=== PATIENT | female | born 1995 | race Caucasian/White ===

== ENCOUNTER 2016-05-19 12:50 | Emergency (ER) | payer OTHER ==
[~2016-05-19] VITALS: Ht 154.9 cm; Wt 63.5 kg
[~2016-05-19 12:50] MED LIST: ZOFR4TAB3 PO
[2016-05-19] MEDS ORDERED: LACTATED RINGER'S 1000 ML INJ 1,000 ML IV SCH (14:05)
[2016-05-19 14:28] LABS: BACTERIA, URINE RARE /hpf; BLOOD, URINE NEG (NEG); GLUCOSE,URINE NEG (NEG); KETONE, URINE NEG (NEG); MUCUS URINE MANY /lpf (OCC); NITRITE,URINE NEG (NEG); SQUAMOUS EPITHELIAL CELL URINE 1 /hpf (0-5); URINE COLOR YELLOW (YELLW/STRAW)
[2016-05-19 14:30] LABS: COMMENT (UR) CULT NOT INDICATED; CULTURE IF INDICATED CULT NOT INDICATED
--- NOTE | 2016-05-19 15:39 | PD ---
HPI Chief Complaint Patient presents complaining of [place] contractions denies bleeding or rupture the membranes baby is active Date Seen: May 19, 2016 Travel History International Travel<30 Days: No Contact w/Intl Traveler<30Days: No Known Affected Area: No History of Present Illness HPI Patient is a 21-year-old white female at 27 weeks gestation referred over for Dr. Call for extended monitoring for abdominal pain. Patient states that that she is having [place] contractions for about a week ago and worse over the last couple days when she went to work today she had 3 strong was a caused a lot of pain. She denies any bleeding or rupture the membranes baby is active heart rate tracing is reactive. Her seeing a few small contractions on the monitor. Para: 0 : 1 Allergies-Medications (Allergen,Severity, Reaction): Coded Allergies: [place] (Verified Allergy, Severe, Nausea/Vomiting, 01/26/16) Compazine (Verified Adverse Reaction, Intermediate, AGITATION, ANXIETY, 04/01) Imitrex (Verified Adverse Reaction, Intermediate, FEELS FAINT, 01/26/16) Reglan (Verified Adverse Reaction, Mild, 01/26/16) MAKES PT FEEL FUNNY Home Meds Reported Medications Ondansetron (Zofran ODT)4 Mg Tab4 Mg PO 01/05/16 Review of Systems Gastrointestinal: Abdominal Pain Physical Exam Narrative GENERAL: Well-nourished, well-developed patient. SKIN: Warm and dry. HEAD: Normocephalic and atraumatic. EYES: No scleral icterus. No injection or drainage. ENT: No nasal drainage noted. Mucous membranes pink. Airway patent. NECK: Supple, trachea midline. No JVD. CARDIOVASCULAR: Regular rate and rhythm without murmurs, gallops, or rubs. RESPIRATORY: Breath sounds equal bilaterally. No accessory muscle use. BREASTS: Bilateral exam showed no masses , no retractions, no nipple discharge. ABDOMEN/GI: Abdomen soft, non-tender, bowel sounds present, no rebound, no guarding Gravid to [27-] weeks size Fundal Height: [-26 cm] GENITOURINARY: External Genitalia: intact and normal in appearance BUS glands: [-] Cervix: [-Closed] Dilatation: [-] Closed Effacement: 0 Station: [-3] Presentation: [-] Membranes: [intact ] Uterine Contractions: [Irregular-] FHT's: Category: [1-] Baseline: [-133] Reactive: [yes-] Variability: [-] Decels: [0-] EXTREMITIES: No cyanosis or edema. BACK: Nontender without obvious deformity. No CVA tenderness. NEUROLOGICAL: Awake and alert. Motor and sensory grossly within normal limits. Five out of 5 muscle strength in all muscle groups. Normal speech. Data Data Orders Vital Signs (Adult) .ON ADMISSION (05/19/16 14:05) ^ Labor Status (05/19/16 14:05) Urinalysis - C+S If Indicated (05/19/16 14:05) Fibronectin (05/19/16 14:05) Lactated Ringer's 1000 Ml Inj (Lr 1000 M (05/19/16 14:05) Fentanyl Inj (Fentanyl Inj) (05/19/16 14:15) Labs FFN neg Laboratory Tests Test 05/19/16 14:10 Urine Color YELLOW Urine Turbidity HAZY Urine pH 6.0 Urine Specific [place] 1.030 Urine Protein TRACE Urine Glucose (UA) NEG Urine Ketones NEG Urine Occult Blood NEG Urine Nitrite NEG Urine Bilirubin NEG Urine Urobilinogen LESS THAN 2.0 Urine Leukocyte Esterase NEG Urine RBC 1 Urine WBC 4 Urine Squamous Epithelial 1 Cells Urine Bacteria RARE Urine Mucus MANY Microscopic Urinalysis Comment CULT NOT INDICATED Fibronectin NEGATIVE MDM Medical Record Reviewed: No Interpretation(s) Is 27 week intrauterine with [place] contractions. Denies bleeding or ruptured membranes. Urinalysis negative, fibronectin negative , heart rate tracing reactive irregular contractions seen initially but they responded well to IV fluid and pain medicine. Plan Plan this patient was received IV fluid hydrate that she received 25 micro g of fentanyl, for pain. Fluids helped hydrate the patient and decreased contraction activity. And after bag of fluid she did feel better. Her fibronectin was negative cervix closed thick and high to no further tocolytics needed. Plan to discharge patient home to bedrest increase her oral fluids use Tylenol liberally for pain and a heating pad on low across the abdomen is fine or soaking a hot bath Diagnosis Diagnosis: Primary Impression: Andrew Hick's contraction Disposition: DISCHARGE HOME Condition: Stable lAvarez Colunga II, MD May 19, 2016 15:39
== END 2016-05-19 15:53 | disposition home or self-care (01) ==
LOC: HOBED 12:50
DX: O47.03 False labor before 37 completed weeks of gestation, third trimester (principal); Z3A.27 27 weeks gestation of pregnancy
CPT/HCPCS: 81001; 82731; 96374; 99284; J3010; J7120

== ENCOUNTER → 2016-05-28 | Outpatient (CLI) | payer OTHER ==
[~2016-05-28] MED LIST changes: +IBUP-232 PO; +MULTCAP; +OXYC1TAB63 PO; +PROT40TA PO; +ZOFR8TAB PO
== END ==
LOC: CLAB 12:27
PROVIDERS: ATTEND Obstetrics & Gynecology
DX: O47.9 False labor, unspecified (principal); R82.90 Unspecified abnormal findings in urine
CPT/HCPCS: 87086

== ENCOUNTER 2016-06-04 08:32 | Emergency (ER) | payer OTHER ==
[~2016-06-04 08:32] MED LIST changes: -IBUP-232 PO; -MULTCAP; -OXYC1TAB63 PO; -PROT40TA PO; -ZOFR8TAB PO
[2016-06-04] MEDS ORDERED: LACTATED RINGER'S 1000 ML INJ 1,000 ML IV ONE (09:30)
--- NOTE | 2016-06-04 09:34 | PD ---
HPI Chief Complaint contractions Date Seen: Jun 04, 2016 Time Seen: 09:10 Travel History International Travel<30 Days: No Contact w/Intl Traveler<30Days: No History of Present Illness HPI 21 year old G1 at 29/5 weeks gestation presents with contractions. She is having contractions every 5-6 mins by her report. They started one month ago. She has low back pain associated with the contractions. She has increased frequency of urination but no dysuria. She gets occasional headaches but has a history of migraines. She has no vaginal bleeding or loss of fluids. Has good movements. She is a patient of Dr. Nelson. She is up to date on care. She reports no complications in this other than well controlled hyperemesis gravidarum. She takes Diclegis. History Past Medical History Narrative Medical POTS fibromyalgia Obstetric History Obstetric History Dr. Nelson G1 Hyperemesis gravidarum, on diclegis, well controlled currently Past Surgical History Narrative Surgical appendectomy, adenoid removal, cholecystectomy Family History Narrative Family History grandmother with breast cancer, hypertension, high cholesterol Social History Narrative Social History No smoking, drinking, or drug use Allergies-Medications (Allergen,Severity, Reaction): Coded Allergies: [place] (Verified Allergy, Severe, Nausea/Vomiting, 01/26/16) Compazine (Verified Adverse Reaction, Intermediate, AGITATION, ANXIETY, 04/01) Imitrex (Verified Adverse Reaction, Intermediate, FEELS FAINT, 01/26/16) Reglan (Verified Adverse Reaction, Mild, 01/26/16) MAKES PT FEEL FUNNY Home Meds Reported Medications Ondansetron (Zofran ODT)4 Mg Tab4 Mg PO 01/05/16 Narrative Medication Diclegis Review of Systems General / Constitutional: Weight Gain, No: Fever, Weight Loss, Chills Eyes: No: Diploplia, Blurred Vision, Visual changes, Pain HENT: Headaches, No: Vertigo, Lightheadedness Cardiovascular: No: Irregular Rhythm, Chest Pain or Discomfort, Palpitations, Tachycardia, Syncope Respiratory: No: Cough, Short of Breath, Wheezing Gastrointestinal: Nausea, Vomiting, No: Diarrhea, Abdominal Pain Genitourinary: Urgency, Frequency, No: Dysuria, Hematuria Musculoskeletal: Cramping, No: Limited ROM, Weakness, Edema Skin: No Rash, No Itching Neurologic: Headache, No: Weakness, Dizziness, Syncope, Focal Abnormalities, Coordination Problem Psychiatric: No: Anxiety, Depression Endocrine: No: Heat Intolerance, Cold Intolerance Physical Exam Narrative GENERAL: Well-nourished, well-developed patient. SKIN: Warm and dry. HEAD: Normocephalic and atraumatic. EYES: No scleral icterus. No injection or drainage. ENT: No nasal drainage noted. Mucous membranes pink. Airway patent. NECK: Supple, trachea midline. No JVD. CARDIOVASCULAR: Regular rate and rhythm without murmurs, gallops, or rubs. RESPIRATORY: Breath sounds equal bilaterally. No accessory muscle use. BREASTS: Bilateral exam showed no masses , no retractions, no nipple discharge. ABDOMEN/GI: Abdomen soft, non-tender, bowel sounds present, no rebound, no guarding Gravid to [-] weeks size Fundal Height: [-] GENITOURINARY: External Genitalia: intact and normal in appearance Dilatation:0 Effacement:0 Station: [-] Presentation: [-] Membranes: [intact or ruptured] Uterine Contractions: none currently FHT's: Category:1 Baseline: 130's Reactive: yes Variability: moderate Decels: none EXTREMITIES: No cyanosis or edema. BACK: Nontender without obvious deformity. No CVA tenderness. NEUROLOGICAL: Awake and alert. Motor and sensory grossly within normal limits. Five out of 5 muscle strength in all muscle groups. Normal speech. Data Data Vital Signs Reviewed: Yes Orders Vital Signs (Adult) .ON ADMISSION (06/04/16 09:16) ^ Labor Status (06/04/16 09:16) Urinalysis - C+S If Indicated (06/04/16 09:16) ^ Hydration (06/04/16 09:16) Fibronectin (06/04/16 09:16) Us Ob Bpp Wo Nst (06/04/16 09:16) Lr ([place]) Inj (06/04/16 09:30) MDM Medical Record Reviewed: Yes Interpretation(s) 21 year old G1 at 29/5 weeks gestation, having contractions. - US, assess cervical length. - Urinalysis to rule out UTI - One liter lactated ringers for hydration - Continuous monitoring - Monitor for contractions - Labor check, cervix closed Narrative Course / MDM 21 year old G1 at 29/5 weeks gestation. - UA negative. - FFN negative - Hydrated with one liter LR - No contractions on monitor - Category one tracing - US: BPP 8/8, normal anatomy, normal cervical length - Follow up with OB doctor - Hydrate well Diagnosis Diagnosis: Primary Impression: Uterine cramping Disposition: 01 DISCHARGE HOME Condition: Good Rolf Durbin MD R2 Jun 04, 2016 09:34
[2016-06-04 09:41] LABS: BACTERIA, URINE RARE /hpf; BLOOD, URINE NEG (NEG); COMMENT (UR) CULT NOT INDICATED; CULTURE IF INDICATED CULT NOT INDICATED; GLUCOSE,URINE NEG (NEG); KETONE, URINE NEG (NEG); MUCUS URINE FEW /lpf (OCC); NITRITE,URINE NEG (NEG); PH, URINE 6.5 (5.0-8.5); SQUAMOUS EPITHELIAL CELL URINE 2 /hpf (0-5); URINE COLOR YELLOW (YELLW/STRAW)
== END 2016-06-04 11:00 | disposition home or self-care (01) ==
LOC: HOBED 08:32
DX: N94.89 Other specified conditions associated with female genital organs and menstrual cycle (principal)
CPT/HCPCS: 59025; 76816; 81001; 82731; 99284; J7120

== ENCOUNTER 2016-07-11 11:07 | Emergency (ER) | payer OTHER ==
[2016-07-11] MEDS ORDERED: MULTCAP (12:09)
--- NOTE | 2016-07-11 12:15 | PD ---
HPI Chief Complaint Possible leakage of fluid Date Seen: Jul 11, 2016 Time Seen: 14:05 Travel History International Travel<30 Days: No Contact w/Intl Traveler<30Days: No Known Affected Area: No History of Present Illness HPI 21-year-old 1 at 34-6/7 weeks gestation who thinks she may have been leaking a small amount of fluid. She also complains of intermittent sharp lower abdominal pain lasting just a couple of seconds. She denies any bleeding. She does report decreased movement. Para: 0 : 1 History Past Medical History Narrative Medical Fibromyalgia Obstetric History Obstetric History care with Dr. Call Past Surgical History Narrative Surgical Appendectomy, cholecystectomy, adenoid removal Family History Family History: Negative Social History Alcohol Use: No Tobacco Use: No Substance Abuse: No Allergies-Medications (Allergen,Severity, Reaction): Coded Allergies: [place] (Verified Allergy, Severe, Nausea/Vomiting, 01/26/16) Compazine (Verified Adverse Reaction, Intermediate, AGITATION, ANXIETY, 04/01) Imitrex (Verified Adverse Reaction, Intermediate, FEELS FAINT, 01/26/16) Reglan (Verified Adverse Reaction, Mild, 01/26/16) MAKES PT FEEL FUNNY Home Meds Reported Medications Ondansetron (Zofran ODT)4 Mg Tab4 Mg PO 01/05/16 Review of Systems Except as stated in HPI: all other systems reviewed are Neg Physical Exam Narrative GENERAL: Well-nourished, well-developed patient. SKIN: Warm and dry. HEAD: Normocephalic and atraumatic. EYES: No scleral icterus. No injection or drainage. ENT: No nasal drainage noted. Mucous membranes pink. Airway patent. NECK: Supple, trachea midline. No JVD. CARDIOVASCULAR: Regular rate and rhythm without murmurs, gallops, or rubs. RESPIRATORY: Breath sounds equal bilaterally. No accessory muscle use. ABDOMEN/GI: Abdomen soft, non-tender, bowel sounds present, no rebound, no guarding Gravid to [34-] weeks size Fundal Height: [-] GENITOURINARY: External Genitalia: intact and normal in appearance BUS glands: [-Negative] Cervix: [-] Dilatation: [Closed-] Effacement: [Long-] Station: [-High] Presentation: [Vertex-] Membranes: [intact ] Uterine Contractions: [-No] FHT's: Category: [1-] Baseline: [-] Reactive: [-Yes] Variability: [-] Decels: [-] EXTREMITIES: No cyanosis or edema. BACK: Nontender without obvious deformity. No CVA tenderness. NEUROLOGICAL: Awake and alert. Motor and sensory grossly within normal limits. Five out of 5 muscle strength in all muscle groups. Normal speech. Data Data Vital Signs Reviewed: Yes [facility] Medical Record Reviewed: Yes Diagnosis Diagnosis: Primary Impression: Andrew Hick's contraction Additional Impressions: 34 weeks gestation of leakage of amniotic fluid ruled out Disposition: 01 DISCHARGE HOME Bryant Zee MD Jul 11, 2016 12:15
== END 2016-07-11 13:45 | disposition home or self-care (01) ==
LOC: HOBED 11:07
DX: Z03.71 Encounter for suspected problem with amniotic cavity and membrane ruled out (principal); O47.03 False labor before 37 completed weeks of gestation, third trimester; O26.893 Other specified pregnancy related conditions, third trimester; R10.30 Lower abdominal pain, unspecified; Z87.39 Personal history of other diseases of the musculoskeletal system and connective tissue; Z3A.34 34 weeks gestation of pregnancy
CPT/HCPCS: 84112; 99284

== ENCOUNTER 2016-07-11 19:24 | Emergency (ER) | payer OTHER ==
[~2016-07-11 19:24] MED LIST changes: +MULTCAP
[2016-07-11] MEDS ORDERED: PROMETHAZINE INJ 25 MG/ML VIAL IM ONE (20:00)
--- NOTE | 2016-07-11 20:23 | PD ---
History of Present Illness Date Seen: Jul 11, 2016 Time Seen: 20:20 History of Present Illness Patient is a 21-year-old female who is 36 weeks and seen earlier today in the triage unit for possible ruptured membranes. She was discharged home after this was ruled out. She has had persistent nausea and vomiting throughout the for which she takes Diclegis. She vomited after leaving an returns for antiemetic treatment. She has not taken her Diclegis. Assessment: Nausea and vomiting of Plan: 25 mg of IM Phenergan. UA culture not indicated Resume home perscription Bryant Zee MD Jul 11, 2016 20:23
[2016-07-11 21:50] LABS: BLOOD, URINE NEG (NEG); COMMENT (UR) CULT NOT INDICATED; CULTURE IF INDICATED CULT NOT INDICATED; GLUCOSE,URINE NEG (NEG); HYALINE CAST, URINE 4 /lpf (RARE); KETONE, URINE 80 mg/dL (NEG); MUCUS URINE MANY /lpf (OCC); NITRITE,URINE NEG (NEG); PH, URINE 5.5 (5.0-8.5); SQUAMOUS EPITHELIAL CELL URINE 3 /hpf (0-5); URINE COLOR YELLOW (YELLW/STRAW)
== END 2016-07-11 23:43 | disposition home or self-care (01) ==
LOC: HOBED 19:24
DX: O21.9 Vomiting of pregnancy, unspecified (principal); Z3A.36 36 weeks gestation of pregnancy
CPT/HCPCS: 59025; 81001; 96372; 99284; J2550

== ENCOUNTER 2016-07-16 16:15 | Emergency (ER) | payer OTHER ==
[2016-07-16] MEDS ORDERED: LACTATED RINGER'S 1000 ML INJ 1,000 ML IV SCH (17:00)
[2016-07-16 17:11] VITALS: RESP 18; TEMP 98.1
[2016-07-16 17:45] LABS: BLOOD, URINE NEG (NEG); COMMENT (UR) CULT NOT INDICATED; CULTURE IF INDICATED CULT NOT INDICATED; GLUCOSE,URINE NEG (NEG); KETONE, URINE NEG (NEG); MUCUS URINE FEW /lpf (OCC); NITRITE,URINE NEG (NEG); URINE COLOR YELLOW (YELLW/STRAW)
--- NOTE | 2016-07-16 18:09 | PD ---
HPI Chief Complaint Complains of decreased movement and pelvic pressure Date Seen: Jul 16, 2016 Time Seen: 16:30 Travel History International Travel<30 Days: No Contact w/Intl Traveler<30Days: No Known Affected Area: No History of Present Illness HPI This patient is a 21-year-old white female at [address] Nelson for care presents complaining of decreased movement and increased pelvic pressure and pain, denies bleeding or rupture the membranes. Her heart rate tracing is reactive with good variability, and she is randal every 2-3 minutes. 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 and sees a ged teacher who came and saw her today in labor and delivery patient is off any medications while for this Social History Alcohol Use: No Tobacco Use: No Substance Abuse: No Allergies-Medications (Allergen,Severity, Reaction): Coded Allergies: [place] (Verified Allergy, Severe, Nausea/Vomiting, 07/11/16) Compazine (Verified Adverse Reaction, Intermediate, AGITATION, ANXIETY, ) Imitrex (Verified Adverse Reaction, Intermediate, FEELS FAINT, 07/11/16) Reglan (Verified Adverse Reaction, Mild, 07/11/16) MAKES PT FEEL FUNNY Home Meds Reported Medications Multiple Vitamins W/ Minerals (Multi For Her)1 Cap Cap 07/11/16 Ondansetron (Zofran ODT)4 Mg Tab4 Mg PO 01/05/16 Review of Systems General / Constitutional: No: Fever, Weight Gain, Chills, Other Eyes: No: Diploplia, Blurred Vision, Visual changes, Pain, Photophobia HENT: No: Headaches, Vertigo, Lightheadedness Cardiovascular: No: Irregular Rhythm, Chest Pain or Discomfort, Palpitations, Tachycardia, Syncope, Varicosities, Edema, Cyanosis Respiratory: No: Cough, Short of Breath, Other Gastrointestinal: No: Nausea, Vomiting, Diarrhea Genitourinary: No: Decreased Urinary Output, Oliguria Musculoskeletal: No: Limited ROM, Weakness, Cramping, Edema, Pain Skin: No Rash, No Itching, No Dryness, No Lumps, No Change in Pigmentation, No Change in Nails, No Alopecia, No Lesions Neurologic: No: Weakness, Dizziness, Syncope, Focal Abnormalities, Coordination Problem, Headache, Slurred Speech, Seizures Psychiatric: No: Depression, Suicidal Ideations, Homicidal Ideation Endocrine: No: Heat Intolerance, Cold Intolerance, Polydipsia, Polyuria, Other Physical Exam Vital Signs Date Time Temp Pulse Resp B/P Pulse Ox O2 Delivery O2 Flow Rate FiO2 07/16/16 17:11 98.1 18 Narrative GENERAL: Well-nourished, well-developed patient. SKIN: Warm and dry. HEAD: Normocephalic and atraumatic. EYES: No scleral icterus. No injection or drainage. ENT: No nasal drainage noted. Mucous membranes pink. Airway patent. NECK: Supple, trachea midline. No JVD. CARDIOVASCULAR: Regular rate and rhythm without murmurs, gallops, or rubs. RESPIRATORY: Breath sounds equal bilaterally. No accessory muscle use. BREASTS: Bilateral exam showed no masses , no retractions, no nipple discharge. ABDOMEN/GI: Abdomen soft, non-tender, bowel sounds present, no rebound, no guarding Gravid to [-35] weeks size Fundal Height: [35-] GENITOURINARY: External Genitalia: intact and normal in appearance BUS glands: [-] Cervix: [Closed-] Dilatation: [-Closed] Effacement: [-] Thick Station: [-] High Presentation: [vtx-] Membranes: [intact ] Uterine Contractions: [Every 2-3 minutes-] FHT's: Category: [-1] Baseline: [133-] Reactive: [-yes] Variability: [mod-] Decels: [none-] EXTREMITIES: No cyanosis or edema. BACK: Nontender without obvious deformity. No CVA tenderness. NEUROLOGICAL: Awake and alert. Motor and sensory grossly within normal limits. Five out of 5 muscle strength in all muscle groups. Normal speech. Data Data Orders Vital Signs (Adult) .ON ADMISSION (07/16/16 16:45) ^ Labor Status (07/16/16 16:45) Urinalysis - C+S If Indicated (07/16/16 16:45) Lactated Ringer's 1000 Ml Inj (Lr 1000 M (07/16/16 17:00) Fentanyl Inj (Fentanyl Inj) (07/16/16 18:00) Ob Poc Ultrasound (07/16/16 ) Labs Biophysical profile done tonight throughout [id number] ultrasound which showed a vertex active fetus size equal dates with normal anatomy, adequate amniotic fluid, posterior placenta grade 1, biophysical profile was 8 of 8 on ultrasound 10 of 10 counting the NST Laboratory Tests Test 07/16/16 17:10 Urine Color YELLOW Urine Turbidity CLEAR Urine pH 6.0 Urine Specific [place] 1.016 Urine Protein NEG Urine Glucose (UA) NEG Urine Ketones NEG Urine Occult Blood NEG Urine Nitrite NEG Urine Bilirubin NEG Urine Urobilinogen LESS THAN 2.0 Urine Leukocyte Esterase NEG Urine WBC 1 Urine Mucus FEW Microscopic Urinalysis Comment CULT NOT INDICATED MDM Interpretation(s) This patient is a 21-year-old white female at [address] Nelson for care presents combining of decreased movement and increased pelvic pressure and pain, she denies bleeding or rupture the membranes , baby is active here in labor and delivery she has felt the baby move more here , she is randal every 2-3 minutes and we treated that with IV hydration a liter of fluid and 50 mg of fentanyl IV cause of her cardiac condition with did not give her any terbutaline,po vistaril given , so effectively we've done all the TOCOLYSE and we can do for this 35 week patient nothing else is indicated. Her NST is reactive contractions as above biophysical profile done at the bedside by me which was 8 of 8 on ultrasound 10 of 10 counting the strip Plan Plan we will discharge the patient to home bed rest and Tylenol for pain , heating pad ,soak in a hot tub ,bedrest as much as possible if uncomfortable . return for worsening symptoms Diagnosis Diagnosis: Primary Impression: Decreased movement affecting management of in third trimester Additional Impression: Threatened premature labor affecting , less than 37 weeks in third trimester, antepartum Disposition: 01 DISCHARGE HOME Condition: Stable Alvarez Colunga II, MD Jul 16, 2016 18:09
[2016-07-16 19:15] VITALS: PULSE 77
[2016-07-16 19:30] VITALS: RESP 18
== END 2016-07-16 23:01 | disposition home or self-care (01) ==
LOC: HOBED 16:15
DX: O36.8130 Decreased fetal movements, third trimester, not applicable or unspecified (principal); O47.00 False labor before 37 completed weeks of gestation, unspecified trimester; Z3A.35 35 weeks gestation of pregnancy
CPT/HCPCS: 76815; 81001; 96361; 96374; 99284; J3010; J7120

== ENCOUNTER 2016-07-24 12:01 | Emergency (ER) | payer OTHER ==
[2016-07-24 12:45] VITALS: TEMP 98.3
[2016-07-24] MEDS ORDERED: LACTATED RINGER'S 1000 ML INJ 1,000 ML IV SCH ×2 (13:05→14:05)
--- NOTE | 2016-07-24 13:13 | PD ---
HPI Chief Complaint Contractions with nausea vomiting Date Seen: Jul 24, 2016 Time Seen: 13:09 Travel History International Travel<30 Days: No Contact w/Intl Traveler<30Days: No Known Affected Area: No History of Present Illness HPI 21-year-old who is at 36 weeks and 5 days comes in today with nausea vomiting. Patient had nausea and vomiting in her first trimester control with diet cleavages and Zofran. Patient was prescribed Zofran 4 mg sublingually by her OB but states it has not been effective and has been unable to tolerate oral fluids since last night. Complains of intermittent contractions since 0600 Para: 0 : 1 Last Menstrual Period: Nov 10, 2015 History Past Medical History Narrative Medical Fibromyalgia Positional orthostatic tachycardia Past Surgical History Narrative Surgical Tonsillectomy and cholecystectomy Appendectomy Family History Family History: Negative Social History Alcohol Use: No Tobacco Use: No Substance Abuse: No Allergies-Medications (Allergen,Severity, Reaction): Coded Allergies: [place] (Verified Allergy, Severe, Nausea/Vomiting, 07/11/16) Compazine (Verified Adverse Reaction, Intermediate, AGITATION, ANXIETY, ) Imitrex (Verified Adverse Reaction, Intermediate, FEELS FAINT, 07/11/16) Reglan (Verified Adverse Reaction, Mild, 07/11/16) MAKES PT FEEL FUNNY Home Meds Active Scripts Pantoprazole (Protonix)40 Mg Tab40 Mg PO DAILY #30 TAB Ref 0 Prov:Raven Montelongo MD 07/24/16 Ondansetron (Zofran)8 Mg Tab8 Mg PO TID PRN (nausea) #20 TAB Ref 0 Prov:Raven Montelongo MD 07/24/16 Reported Medications Multiple Vitamins W/ Minerals (Multi For Her)1 Cap Cap 07/11/16 Ondansetron (Zofran ODT)4 Mg Tab4 Mg PO 01/05/16 Review of Systems Except as stated in HPI: all other systems reviewed are Neg Physical Exam Narrative GENERAL: Well-nourished, well-developed patient. SKIN: Warm and dry. HEAD: Normocephalic and atraumatic. EYES: No scleral icterus. No injection or drainage. ENT: No nasal drainage noted. Mucous membranes pink. Airway patent. NECK: Supple, trachea midline. No JVD. CARDIOVASCULAR: Regular rate and rhythm without murmurs, gallops, or rubs. RESPIRATORY: Breath sounds equal bilaterally. No accessory muscle use. BREASTS: Bilateral exam showed no masses , no retractions, no nipple discharge. ABDOMEN/GI: Abdomen soft, non-tender, bowel sounds present, no rebound, no guarding Gravid to [-] weeks size Fundal Height: [35-] GENITOURINARY: External Genitalia: intact and normal in appearance BUS glands: [Normal-] nurse examined this patient cervix was closed 50 and high Cervix: [-] Dilatation: [-] Effacement: [-] Station: [-] Presentation: [-] Membranes: [intact or ruptured] Uterine Contractions: [-] Irregular every 5-8 minutes FHT's: Category: [1-] Baseline: [-140] Reactive: [-] Variability: Reactive with accelerations Decels: [-Absent] EXTREMITIES: No cyanosis or edema. BACK: Nontender without obvious deformity. No CVA tenderness. NEUROLOGICAL: Awake and alert. Motor and sensory grossly within normal limits. Five out of 5 muscle strength in all muscle groups. Normal speech. Data Data Vital Signs Reviewed: Yes Orders Vital Signs (Adult) .ON ADMISSION (07/24/16 13:05) ^ Labor Status (07/24/16 13:05) ^ Hydration (07/24/16 13:05) Basic Metabolic Panel (Bmp) (07/24/16 13:05) Lactated Ringer's 1000 Ml Inj (Lr 1000 M (07/24/16 13:05) Lactated Ringer's 1000 Ml Inj (Lr 1000 M (07/24/16 14:05) Labs Laboratory Tests Test 07/24/16 13:30 White Blood Count 9.9 TH/MM3 Red Blood Count 4.19 MIL/MM3 Hemoglobin 11.6 GM/DL Hematocrit 34.2 % Mean Corpuscular Volume 81.4 FL Mean Corpuscular Hemoglobin 27.6 PG Mean Corpuscular Hemoglobin 33.9 % Concent Red Cell Distribution Width 13.7 % Platelet Count 299 TH/MM3 Mean Platelet Volume 9.0 FL Neutrophils (%) (Auto) 66.0 % Lymphocytes (%) (Auto) 23.6 % Monocytes (%) (Auto) 9.8 % Eosinophils (%) (Auto) 0.4 % Basophils (%) (Auto) 0.2 % Neutrophils # (Auto) 6.5 TH/MM3 Lymphocytes # (Auto) 2.3 TH/MM3 Monocytes # (Auto) 1.0 TH/MM3 Eosinophils # (Auto) 0.0 TH/MM3 Basophils # (Auto) 0.0 TH/MM3 CBC Comment DIFF FINAL Differential Comment Sodium Level 139 MEQ/L Potassium Level 3.9 MEQ/L Chloride Level 107 MEQ/L Carbon Dioxide Level 21.1 MEQ/L Anion Gap 11 MEQ/L Blood Urea Nitrogen 11 MG/DL Creatinine 0.62 MG/DL Estimat Glomerular Filtration 122 ML/MIN Rate Random Glucose 79 MG/DL Calcium Level 8.9 MG/DL MDM Plan 21 yo at 35-36 weeks gestation with nausea and vomiting Fibromyalgia False labor Have enclosed scripts for Zofran 8 mg and Protonix for her reflux symptoms which may be initiating the nausea and vomiting Diagnosis Diagnosis: Primary Impression: Nausea/vomiting in Additional Impression: False labor after 37 weeks of gestation without delivery Disposition: 01 DISCHARGE HOME Scripts Pantoprazole (Protonix)40 Mg Tab40 Mg PO DAILY #30 TAB Ref 0 Prov:Raven Montelongo MD 07/24/16 Ondansetron (Zofran)8 Mg Tab8 Mg PO TID PRN (nausea) #20 TAB Ref 0 Prov:Raven Montelongo MD 07/24/16 Raven Montelongo MD Jul 24, 2016 13:13
[2016-07-24] MEDS ORDERED: PROCHLORPERAZINE INJ 10 MG/2 ML VIAL IVS ONE (13:15)
[2016-07-24] MEDS ORDERED: ONDANSETRON HCL 4 MG/2 ML VIAL IV PUSH ONE (13:45)
[2016-07-24 13:56] VITALS: BP 116/82; PULSE 75
[2016-07-24 13:58] VITALS: RESP 18
[2016-07-24 13:58] LABS: AUTOMATED NEUTROPHIL # 6.5 TH/MM3 (1.8-7.7); BASOPHIL % 0.2 % (0.0-2.0); EOSINOPHIL % 0.4 % (0.0-4.0); HEMATOCRIT 34.2 % (35.0-46.0); HEMO FLAGS DIFF FINAL; LYMPH % 23.6 % (9.0-44.0); LYMPHOCYTE # 2.3 TH/MM3 (1.0-4.8); MEAN CELL VOLUME 81.4 FL (80.0-100.0); MEAN CORPUSCULAR HEMOGLOBIN 27.6 PG (27.0-34.0); MEAN CORPUSCULAR HGB CONC 33.9 % (32.0-36.0); MONO % 9.8 % (0.0-8.0); PLATELET COUNT 299 TH/MM3 (150-450); RED BLOOD COUNT 4.19 MIL/MM3 (4.00-5.30); RED CELL DISTRIBUTION WIDTH 13.7 % (11.6-17.2); WHITE BLOOD COUNT 9.9 TH/MM3 (4.0-11.0)
[2016-07-24 14:09] LABS: BICARBONATE 21.1 MEQ/L (21.0-32.0); POTASSIUM 3.9 MEQ/L (3.5-5.1)
[2016-07-24] MEDS ORDERED: PROT40TA PO (14:24)
[2016-07-24] MEDS ORDERED: ZOFR8TAB PO (14:24)
[2016-07-24 14:26] VITALS: BP 110/77; PULSE 66
== END 2016-07-24 15:29 | disposition home or self-care (01) ==
LOC: HOBED 12:01
DX: O47.03 False labor before 37 completed weeks of gestation, third trimester (principal); M79.7 Fibromyalgia; O21.0 Mild hyperemesis gravidarum; Z3A.36 36 weeks gestation of pregnancy
CPT/HCPCS: 80048; 85025; 96361; 96374; 99284; J2405; J7120

== ENCOUNTER 2016-07-27 14:53 | Emergency (ER) | payer OTHER ==
[~2016-07-27 14:53] MED LIST changes: +PROT40TA PO; +ZOFR8TAB PO
--- NOTE | 2016-07-27 15:46 | PD ---
HPI Chief Complaint Increasing pelvic pressure Date Seen: Jul 27, 2016 Travel History International Travel<30 Days: No Contact w/Intl Traveler<30Days: No Known Affected Area: No History of Present Illness HPI She is 21-year-old white female at 37 weeks presents complaining of increasing pelvic pressure since yesterday. She states the pressure is there is a steady increasing force is present when she is up moving or sitting up is a lot of pressure. Does not really describe pain or contractions per se but she is randal on the monitor about every 4 minutes or so, heart rate tracing is reactive, she denies vaginal bleeding or leakage of fluid Para: 0 : 1 History Past Medical History Medical History: Denies Significant Hx Social History Alcohol Use: No Tobacco Use: No Substance Abuse: No Allergies-Medications (Allergen,Severity, Reaction): Coded Allergies: [place] (Verified Allergy, Severe, Nausea/Vomiting, 07/11/16) Compazine (Verified Adverse Reaction, Intermediate, AGITATION, ANXIETY, ) Imitrex (Verified Adverse Reaction, Intermediate, FEELS FAINT, 07/11/16) Reglan (Verified Adverse Reaction, Mild, 07/11/16) MAKES PT FEEL FUNNY Home Meds Active Scripts Pantoprazole (Protonix)40 Mg Tab40 Mg PO DAILY #30 TAB Ref 0 Prov:Raven Montelongo MD 07/24/16 Ondansetron (Zofran)8 Mg Tab8 Mg PO TID PRN (nausea) #20 TAB Ref 0 Prov:Raven Montelongo MD 07/24/16 Reported Medications Multiple Vitamins W/ Minerals (Multi For Her)1 Cap Cap 07/11/16 Ondansetron (Zofran ODT)4 Mg Tab4 Mg PO 01/05/16 Review of Systems General / Constitutional: No: Fever, Weight Gain, Chills, Other Eyes: No: Diploplia, Blurred Vision, Visual changes, Pain, Photophobia HENT: No: Headaches, Vertigo, Lightheadedness Cardiovascular: No: Irregular Rhythm, Chest Pain or Discomfort, Palpitations, Tachycardia, Syncope, Varicosities, Edema, Cyanosis Respiratory: No: Cough, Short of Breath, Other Gastrointestinal: Abdominal Pain, No: Nausea, Vomiting, Diarrhea Genitourinary: Pelvic Pain, No: Decreased Urinary Output, Oliguria Musculoskeletal: No: Limited ROM, Weakness, Cramping, Edema, Pain Skin: No Rash, No Itching, No Dryness, No Lumps, No Change in Pigmentation, No Change in Nails, No Alopecia, No Lesions Neurologic: No: Weakness, Dizziness, Syncope, Focal Abnormalities, Coordination Problem, Headache, Slurred Speech, Seizures Psychiatric: No: Depression, Suicidal Ideations, Homicidal Ideation Endocrine: No: Heat Intolerance, Cold Intolerance, Polydipsia, Polyuria, Other Physical Exam Narrative GENERAL: Well-nourished, well-developed patient. SKIN: Warm and dry. HEAD: Normocephalic and atraumatic. EYES: No scleral icterus. No injection or drainage. ENT: No nasal drainage noted. Mucous membranes pink. Airway patent. NECK: Supple, trachea midline. No JVD. CARDIOVASCULAR: Regular rate and rhythm without murmurs, gallops, or rubs. RESPIRATORY: Breath sounds equal bilaterally. No accessory muscle use. BREASTS: Bilateral exam showed no masses , no retractions, no nipple discharge. ABDOMEN/GI: Abdomen soft, non-tender, bowel sounds present, no rebound, no guarding Gravid to [-36] weeks size Fundal Height: [36-] GENITOURINARY: External Genitalia: intact and normal in appearance BUS glands: [-] Cervix: [-] Dilatation: [closed-] Effacement: [50-] Station: [-3] posterior Presentation: [-vtx] Membranes: [intact ] Uterine Contractions: [-q 4 min] FHT's: Category: [1-] Baseline: [-133] Reactive: [yes-] Variability: [-mod] Decels: [none-] EXTREMITIES: No cyanosis or edema. BACK: Nontender without obvious deformity. No CVA tenderness. NEUROLOGICAL: Awake and alert. Motor and sensory grossly within normal limits. Five out of 5 muscle strength in all muscle groups. Normal speech. MDM Interpretation(s) Patient is 21-year-old white female at 37 weeks gestation presents pain, increasing pelvic and abdominal pressure. She denies bleeding or leakage of amniotic fluid, the heart rate tracing is reactive she is randal about every 4-5 minutes. Patient's cervix is closed and posterior discomfort is likely related to soft tissue strain and pain and I recommended the patient and increase her bed rest over the next [id number] hours increase her fluid intake to hydrate better use Tylenol liberally for pain or discomfort. Also use a heating pad or hot bath as well. Offered her a pain shot today and she wanted to do that so we will give her 50 g of fentanyl IM. She is to follow-up with Dr. Nelson her OB provider for further symptoms or as scheduled Plan Plan to discharge patient home today to bed rest and increase fluids by mouth Tylenol, heating pad and or hot bath to alleviate symptoms Diagnosis Diagnosis: Primary Impression: False labor at or after 37 completed weeks of gestation Disposition: 01 DISCHARGE HOME Condition: Stable Alvarez Colunga II, MD Jul 27, 2016 15:46
== END 2016-07-27 16:03 | disposition home or self-care (01) ==
LOC: HOBED 14:53
DX: O47.1 False labor at or after 37 completed weeks of gestation (principal); Z3A.37 37 weeks gestation of pregnancy
CPT/HCPCS: 96372; 99284; J3010

== ENCOUNTER 2016-08-01 08:57 | Emergency (ER) | payer OTHER ==
--- NOTE | 2016-08-01 10:16 | PD ---
HPI Chief Complaint Contraction pain Date Seen: Aug 01, 2016 Travel History International Travel<30 Days: No Contact w/Intl Traveler<30Days: No Known Affected Area: No History of Present Illness HPI Patient complains of irregular uterine contractions with increasing pain over the last 24 hours, denies bleeding or rupture the membranes, baby is reactive and moving. The contractions are seen every 4-6 minutes Para: 0 : 1 History Social History Alcohol Use: No Tobacco Use: No Substance Abuse: No Allergies-Medications (Allergen,Severity, Reaction): Coded Allergies: [place] (Verified Allergy, Severe, Nausea/Vomiting, 07/11/16) Compazine (Verified Adverse Reaction, Intermediate, AGITATION, ANXIETY, ) Imitrex (Verified Adverse Reaction, Intermediate, FEELS FAINT, 07/11/16) Reglan (Verified Adverse Reaction, Mild, 07/11/16) MAKES PT FEEL FUNNY Home Meds Active Scripts Pantoprazole (Protonix)40 Mg Tab40 Mg PO DAILY #30 TAB Ref 0 Prov:Raven Montelongo MD 07/24/16 Ondansetron (Zofran)8 Mg Tab8 Mg PO TID PRN (nausea) #20 TAB Ref 0 Prov:Raven Montelongo MD 07/24/16 Reported Medications Multiple Vitamins W/ Minerals (Multi For Her)1 Cap Cap 07/11/16 Ondansetron (Zofran ODT)4 Mg Tab4 Mg PO 01/05/16 Review of Systems General / Constitutional: No: Fever, Weight Gain, Chills, Other Eyes: No: Diploplia, Blurred Vision, Visual changes, Pain, Photophobia HENT: No: Headaches, Vertigo, Lightheadedness Cardiovascular: No: Irregular Rhythm, Chest Pain or Discomfort, Palpitations, Tachycardia, Syncope, Varicosities, Edema, Cyanosis Respiratory: No: Cough, Short of Breath, Other Gastrointestinal: No: Nausea, Vomiting, Diarrhea Genitourinary: No: Decreased Urinary Output, Oliguria Musculoskeletal: No: Limited ROM, Weakness, Cramping, Edema, Pain Skin: No Rash, No Itching, No Dryness, No Lumps, No Change in Pigmentation, No Change in Nails, No Alopecia, No Lesions Neurologic: No: Weakness, Dizziness, Syncope, Focal Abnormalities, Coordination Problem, Headache, Slurred Speech, Seizures Psychiatric: No: Depression, Suicidal Ideations, Homicidal Ideation Endocrine: No: Heat Intolerance, Cold Intolerance, Polydipsia, Polyuria, Other Physical Exam Narrative GENERAL: Well-nourished, well-developed patient. SKIN: Warm and dry. HEAD: Normocephalic and atraumatic. EYES: No scleral icterus. No injection or drainage. ENT: No nasal drainage noted. Mucous membranes pink. Airway patent. NECK: Supple, trachea midline. No JVD. CARDIOVASCULAR: Regular rate and rhythm without murmurs, gallops, or rubs. RESPIRATORY: Breath sounds equal bilaterally. No accessory muscle use. BREASTS: Bilateral exam showed no masses , no retractions, no nipple discharge. ABDOMEN/GI: Abdomen soft, non-tender, bowel sounds present, no rebound, no guarding Gravid to [36-] weeks size Fundal Height: [-36] GENITOURINARY: External Genitalia: intact and normal in appearance BUS glands: [-] Cervix: [-] Dilatation: [closed-] Effacement: [-thick] Station: [-3] Presentation: [-vtx] Membranes: [intact ] Uterine Contractions: [irreg-] FHT's: Category: [1-] Baseline: [-144] Reactive: [yes-] Variability: [-mod] Decels: [none-] EXTREMITIES: No cyanosis or edema. BACK: Nontender without obvious deformity. No CVA tenderness. NEUROLOGICAL: Awake and alert. Motor and sensory grossly within normal limits. Five out of 5 muscle strength in all muscle groups. Normal speech. MDM Interpretation(s) This patient is a 21-year-old at [address] Nelson's who presents with contractions and pain. She denies bleeding or ruptured membranes. Baby is active heart rate tracing is reactive and she is randal irregularly every 4-6 minutes. Cervix is still closed and high. Patient's been up here several times for the same pain. Plan Plan to the patient an IM injection of fentanyl for pain relief sedation home to bedrest return for increasing pain leakage of fluid or vaginal bleeding. Otherwise follow up with her OB provider as scheduled Diagnosis Diagnosis: Primary Impression: False labor after 37 weeks of gestation without delivery Disposition: 01 DISCHARGE HOME Condition: Stable Alvarez Colunga II, MD Aug 01, 2016 10:16
== END 2016-08-01 11:30 | disposition home or self-care (01) ==
LOC: HOBED 08:57
DX: O47.1 False labor at or after 37 completed weeks of gestation (principal); Z3A.38 38 weeks gestation of pregnancy
CPT/HCPCS: 59025; 96372; 99284; J3010

== ENCOUNTER 2016-08-02 02:21 | Inpatient (IN) | payer OTHER ==
[~2016-08-02] VITALS: Ht 162.6 cm; Wt 84.4 kg
[2016-08-02] VITALS (149 sets, daily range): BP systolic 95–141; BP diastolic 52–106; PULSE 61–150; RESP 16–18; TEMP 97.6–99.2
--- NOTE | 2016-08-02 02:48 | HHI.HP ---
History & Physical H&P Patient Name: Ledy Ordoñez Unit Number: [id number] Date of : 1995 Patient Status: Departed Emergency Room Attending Doctor: Alvarez Colunga II, MD HPI HPI Chief Complaint Contraction pain Date Seen: Aug 01, 2016 Travel History International Travel<30 Days: No Contact w/Intl Traveler<30Days: No Known Affected Area: No History of Present Illness HPI Patient complains of irregular uterine contractions with increasing pain over the last 24 hours and now with SROM , denies bleeding , baby is reactive and moving. The contractions are seen every 4 minutes Para: 0 : 1 History (Limited) History Social History Alcohol Use: No Tobacco Use: No Substance Abuse: No Allergies-Medications Allergies-Medications (Allergen,Severity, Reaction): Coded Allergies: [place] (Verified Allergy, Severe, Nausea/Vomiting, 07/11/16) Compazine (Verified Adverse Reaction, Intermediate, AGITATION, ANXIETY, ) Imitrex (Verified Adverse Reaction, Intermediate, FEELS FAINT, 07/11/16) Reglan (Verified Adverse Reaction, Mild, 07/11/16) MAKES PT FEEL FUNNY Home Meds Active Scripts Pantoprazole (Protonix)40 Mg Tab40 Mg PO DAILY #30 TAB Ref 0 Prov:Raven Montelongo MD 07/24/16 Ondansetron (Zofran)8 Mg Tab8 Mg PO TID PRN (nausea) #20 TAB Ref 0 Prov:Raven Montelongo MD 07/24/16 Reported Medications Multiple Vitamins W/ Minerals (Multi For Her)1 Cap Cap 07/11/16 Ondansetron (Zofran ODT)4 Mg Tab4 Mg PO 01/05/16 ROS Review of Systems General / Constitutional: No: Fever, Weight Gain, Chills, Other Eyes: No: Diploplia, Blurred Vision, Visual changes, Pain, Photophobia HENT: No: Headaches, Vertigo, Lightheadedness Cardiovascular: No: Irregular Rhythm, Chest Pain or Discomfort, Palpitations, Tachycardia, Syncope, Varicosities, Edema, Cyanosis Respiratory: No: Cough, Short of Breath, Other Gastrointestinal: No: Nausea, Vomiting, Diarrhea Genitourinary: No: Decreased Urinary Output, Oliguria Musculoskeletal: No: Limited ROM, Weakness, Cramping, Edema, Pain Skin: No Rash, No Itching, No Dryness, No Lumps, No Change in Pigmentation, No Change in Nails, No Alopecia, No Lesions Neurologic: No: Weakness, Dizziness, Syncope, Focal Abnormalities, Coordination Problem, Headache, Slurred Speech, Seizures Psychiatric: No: Depression, Suicidal Ideations, Homicidal Ideation Endocrine: No: Heat Intolerance, Cold Intolerance, Polydipsia, Polyuria, Other Physical Exam Physical Exam Narrative GENERAL: Well-nourished, well-developed patient. SKIN: Warm and dry. HEAD: Normocephalic and atraumatic. EYES: No scleral icterus. No injection or drainage. ENT: No nasal drainage noted. Mucous membranes pink. Airway patent. NECK: Supple, trachea midline. No JVD. CARDIOVASCULAR: Regular rate and rhythm without murmurs, gallops, or rubs. RESPIRATORY: Breath sounds equal bilaterally. No accessory muscle use. BREASTS: Bilateral exam showed no masses , no retractions, no nipple discharge. ABDOMEN/GI: Abdomen soft, non-tender, bowel sounds present, no rebound, no guarding Gravid to [36-] weeks size Fundal Height: [-36] GENITOURINARY: External Genitalia: intact and normal in appearance BUS glands: [-] Cervix: [-] Dilatation: 1 Effacement 90 Station: [- 2] Presentation: [-vtx] Membranes: SROM + amnisure ] Uterine Contractions: [irreg-] FHT's: Category: [1-] Baseline: [-144] Reactive: [yes-] Variability: [-mod] Decels: [none-] EXTREMITIES: No cyanosis or edema. BACK: Nontender without obvious deformity. No CVA tenderness. NEUROLOGICAL: Awake and alert. Motor and sensory grossly within normal limits. Five out of 5 muscle strength in all muscle groups. Normal speech. Data Data [facility] Interpretation(s) This patient is a 21-year-old at [address] Levy who presents with contractions and pain and now SROM + amnisure GBS neg. She denies bleeding . Baby is active heart rate tracing is reactive and she is randal irregularly every 4 minutes. Cervix is 1/90/-2. Plan to admit for SROM / early labor, notify her OB doc Diagnosis Diagnosis: Primary Impression: SROM , latent labor Disposition: Admit Alvarez Colunga II, MD Aug 01, 2016 10:16 Alvarez Colunga II, MD Aug 02, 2016 02:47 Alvarez Colunga II, MD Aug 01, 2016 10:16 Alvarez Colunga II, MD Aug 02, 2016 02:47
[2016-08-02] MEDS ORDERED: LACTATED RINGER'S 1000 ML INJ 1,000 ML IV PRN (02:52)
[2016-08-02] MEDS ORDERED: LIDOCAINE HCL 1% 50 ML VIAL I-DERMAL PRN (03:00)
[2016-08-02] MEDS ORDERED: SODIUM CHLORID 0.9% 500 ML INJ 500 ML IV PRN (03:00)
[2016-08-02] MEDS ORDERED: OXYTOCIN 30 UNITS-500ML PREMIX 500 ML IV ONE ×2 (03:00→15:45)
[2016-08-02] MEDS ORDERED: CITRIC ACID-SODIUM CITRATE LIQ 30 ML UDC PO SCH (03:00)
[2016-08-02] MEDS ORDERED: MINERAL OIL 10 ML VIAL TOPICAL PRN (03:00)
[2016-08-02] MEDS ORDERED: LIDOCAINE HCL 1% 50 ML VIAL INFIL PRN (03:00)
[2016-08-02] MEDS ORDERED: SODIUM CHLOR 0.9% 1000 ML INJ 1,000 ML IV PRN (03:12)
[2016-08-02] MEDS ORDERED: ONDANSETRON HCL 4 MG/2 ML VIAL ONE (03:34)
[2016-08-02 03:36] LABS: AUTOMATED NEUTROPHIL # 6.3 TH/MM3 (1.8-7.7); BASOPHIL # 0.2 TH/MM3 (0-0.2); BASOPHIL % 1.4 % (0.0-2.0); EOSINOPHIL # 0.1 TH/MM3 (0-0.4); EOSINOPHIL % 0.6 % (0.0-4.0); HEMATOCRIT 35.3 % (35.0-46.0); HEMO FLAGS DIFF FINAL; LYMPHOCYTE # 4.4 TH/MM3 (1.0-4.8); MEAN CELL VOLUME 81.3 FL (80.0-100.0); MEAN CORPUSCULAR HEMOGLOBIN 27.4 PG (27.0-34.0); MEAN CORPUSCULAR HGB CONC 33.7 % (32.0-36.0); MONO % 9.5 % (0.0-8.0); NEUT % 52.5 % (16.0-70.0); PLATELET COUNT 257 TH/MM3 (150-450); RED BLOOD COUNT 4.35 MIL/MM3 (4.00-5.30); WHITE BLOOD COUNT 12.1 TH/MM3 (4.0-11.0)
[2016-08-02] MEDS: LACTATED RINGER'S 1000 ML INJ 1,000 ML IV SCH ×4 (03:41→10:21)
[2016-08-02] MEDS ORDERED: fentaNYL 2MCG-BUPIV 0.125% INJ 100 ML ONE (04:16)
[2016-08-02] MEDS ORDERED: ePHEDrine/NS 25 MG/5 ML SYR IV PRN (05:00)
[2016-08-02] MEDS ORDERED: DO NOT ADMINISTER ANTICOAGULANTS XX PRN (05:00)
[2016-08-02] MEDS ORDERED: NO SYSTEM NARCOTICS XX PRN (05:00)
[2016-08-02] MEDS ORDERED: ONDANSETRON HCL 4 MG/2 ML VIAL IV PRN (05:30)
[2016-08-02] MEDS ORDERED: BUPIVACAINE HCL PF 0.25% 10 ML VIAL ONE (05:42)
[2016-08-02 06:53] LABS: BLOOD, URINE NEG (NEG); COMMENT (UR) CULT NOT INDICATED; CULTURE IF INDICATED CULT NOT INDICATED; GLUCOSE,URINE NEG (NEG); KETONE, URINE TRACE mg/dL (NEG); MUCUS URINE FEW /lpf (OCC); NITRITE,URINE NEG (NEG); PH, URINE 7.5 (5.0-8.5); SQUAMOUS EPITHELIAL CELL URINE <1 /hpf (0-5); URINE COLOR LIGHT-YELLOW (YELLW/STRAW)
[2016-08-02] MEDS ORDERED: BUPIVACAINE/EPINEPHRINE 0.25% PF 10 ML VIAL ONE (08:31)
[2016-08-02] MEDS ORDERED: OXYTOCIN 30 UNITS/NS 500ML PREMIX IV SCH (09:30)
--- NOTE | 2016-08-02 13:17 | PD.LABORPN ---
Subjective Subjective +FM, pelvic pressure, still with some pain from contractions Objective Vital Signs Vital Signs Date Time Temp Pulse Resp B/P Pulse Ox O2 Delivery O2 Flow Rate FiO2 08/02/16 12:50 87 08/02/16 12:45 103 115/79 08/02/16 12:45 96 08/02/16 12:30 83 08/02/16 12:30 97 95/61 08/02/16 12:25 99 08/02/16 12:20 80 08/02/16 12:15 93 118/68 08/02/16 12:15 93 08/02/16 12:10 91 08/02/16 12:05 99 08/02/16 12:01 81 117/73 08/02/16 12:00 93 08/02/16 11:55 93 08/02/16 11:50 85 08/02/16 11:47 136/105 08/02/16 11:47 98 08/02/16 11:46 131/106 08/02/16 11:46 84 08/02/16 11:45 91 08/02/16 11:40 83 08/02/16 11:35 84 08/02/16 11:31 90 141/76 08/02/16 11:30 88 08/02/16 11:25 81 08/02/16 11:20 86 08/02/16 11:15 84 130/82 08/02/16 11:10 92 08/02/16 11:05 113 08/02/16 11:01 88 105/77 08/02/16 11:00 84 08/02/16 10:55 90 08/02/16 10:50 89 08/02/16 10:45 89 08/02/16 10:45 96 118/78 08/02/16 10:40 89 08/02/16 10:35 86 08/02/16 10:30 95 115/70 08/02/16 10:30 90 08/02/16 10:25 89 08/02/16 10:20 103 08/02/16 10:16 116 106/78 08/02/16 10:15 92 08/02/16 10:10 84 08/02/16 10:05 79 08/02/16 10:00 112 08/02/16 10:00 81 127/81 3/19/17 09:55 79 3/19/17 09:50 82 17 09:45 88 128/81 17 09:45 85 17 09:40 86 17 09:35 84 17 09:30 92 17 09:30 83 131/79 17 09:27 77 122/72 17 09:25 88 17 09:24 97 111/67 17 09:21 85 123/63 17 09:20 86 17 09:18 97 110/63 17 09:15 84 127/72 17 09:15 81 08/02/16 09:12 76 111/77 08/02/16 09:11 97.6 18 08/02/16 09:10 82 08/02/16 09:09 90 95/80 17 09:06 84 114/69 08/02/16 09:05 91 08/02/16 09:03 99 131/70 17 09:01 128 112/72 17 09:00 95 17 08:58 119 17 08:58 126/106 17 08:55 81 17 08:54 129/72 17 08:54 84 17 08:51 128/80 17 08:51 87 17 08:50 98 17 08:50 121/76 17 08:50 91 17 08:45 112/71 17 08:45 85 17 08:45 87 17 08:40 83 17 08:35 84 17 08:30 80 113/64 17 08:30 85 17 08:25 86 17 08:20 84 17 08:16 81 114/77 17 08:15 84 17 08:10 75 08/02/16 08:05 71 08/02/16 08:00 72 08/02/16 08:00 73 118/74 08/02/16 07:55 75 08/02/16 07:50 72 08/02/16 07:45 79 08/02/16 07:45 87 125/73 08/02/16 07:40 74 08/02/16 07:35 76 08/02/16 07:30 72 116/75 08/02/16 07:30 73 08/02/16 07:25 71 08/02/16 07:20 74 08/02/16 07:15 71 118/80 08/02/16 07:15 74 08/02/16 07:10 71 112/66 08/02/16 07:10 72 08/02/16 07:09 98.6 17 08/02/16 07:05 73 08/02/16 07:00 73 08/02/16 06:40 73 08/02/16 06:35 84 08/02/16 06:35 74 120/64 08/02/16 06:32 18 08/02/16 06:30 76 111/69 08/02/16 06:30 77 08/02/16 06:25 84 08/02/16 06:25 18 08/02/16 06:25 82 103/69 08/02/16 06:20 82 115/67 08/02/16 06:20 78 08/02/16 06:15 84 115/68 08/02/16 06:15 82 08/02/16 06:10 82 116/70 08/02/16 06:10 77 08/02/16 06:05 92 103/69 08/02/16 06:05 91 08/02/16 06:03 93 113/70 08/02/16 06:00 93 08/02/16 06:00 95 121/88 08/02/16 05:47 18 08/02/16 05:45 77 127/71 08/02/16 05:45 72 08/02/16 05:25 89 08/02/16 05:20 89 08/02/16 05:17 18 08/02/16 05:15 90 08/02/16 05:15 85 110/62 Objective Pelvic Exam: Cervix: [-] Dilatation: [-] 6 Effacement: [-] 90 Station: [-] -2 Presentation: [-] vtx Membranes: [ruptured] Uterine Contractions: [-] FHT's: Category: [-] 1 Baseline: [-] 140s Reactive: [-] reactive Variability: [-] mod Decels: [-] none Assessment/Plan Problem List: (1) Plan: anticipate Sophia Tatum MD Aug 02, 2016 13:17
--- NOTE | 2016-08-02 15:41 | PD.OB.DELI ---
Delivery Date: Aug 02, 2016 Anesthesia: Epidural Episiotomy: None Vaginal Delivery: Normal Presentation: Occiput anterior Nuchal Cord: x1 Delayed cord clamping (45 sec): Yes Infant: Male, Single One Minute : 8 Five Minute : 9 Weight: 6-9 Infant Care: Suctioned, Spontaneous crying Placenta: Spontaneous delivery, Intact, 3 vessel cord Laceration: No lacerations Sophia Nelson MD Aug 02, 2016 15:41
[2016-08-02] MEDS ORDERED: BENZOCAINE 20% TOPICAL SPRAY 60 ML CAN TOPICAL PRN (15:45)
[2016-08-02] MEDS ORDERED: WITCH HAZEL 50%/GLYCERIN 12.5% 40 PAD JAR TOPICAL PRN (15:45)
[2016-08-02] MEDS ORDERED: SODIUM CHLORIDE 0.9% FLUSH 5 ML FLUSH IV PRN (15:45)
[2016-08-02] MEDS ORDERED: ALUMINUM/MAGNESIUM/SIMETH 30 ML CUP PO PRN (15:45)
[2016-08-02] MEDS ORDERED: oxyCODONE/ACETAMINOPHEN 5 MG/325 MG TAB PO PRN ×2 (15:45)
[2016-08-02] MEDS ORDERED: OXYTOCIN 10 UNIT/ML AMP XX PRN (15:45)
[2016-08-02] MEDS ORDERED: DOCUSATE SODIUM 50 MG/SENNA 8.6 MG TAB PO PRN (15:45)
[2016-08-02] MEDS ORDERED: ZOLPIDEM TARTRATE 5 MG TAB PO PRN (15:45)
[2016-08-02] MEDS ORDERED: ACETAMINOPHEN 325 MG TAB PO PRN (15:45)
[2016-08-02] MEDS ORDERED: ONDANSETRON ODT 4 MG TAB PO PRN (15:45)
[2016-08-02] MEDS ORDERED: DIPHTH/TETANUS/ACEL PERTUSSIS (BOOSTER) 0.5 ML VIAL/PFS IM ONE (16:00)
[2016-08-02] MEDS ORDERED: MEASLES, MUMPS, RUBELLA VACCINE 0.5 ML VIAL SQ ONE (16:00)
[2016-08-02] MEDS: fentaNYL 2MCG-BUPIV 0.125% 100 ML EPIDURAL SCH (16:12)
[2016-08-02] MEDS: IBUPROFEN 600 MG TAB PO PRN (16:18)
[2016-08-02] MEDS ORDERED: SODIUM CHLORIDE 0.9% FLUSH 5 ML FLUSH IV SCH (21:00)
[2016-08-03] MEDS: IBUPROFEN 600 MG TAB PO PRN ×4 (01:18→21:24)
[2016-08-03 08:14] VITALS: BP 102/69; PULSE 73; RESP 18
[2016-08-03 08:15] VITALS: TEMP 97.9
--- NOTE | 2016-08-03 11:07 | HHI.OB ---
Subjective Post Day: 1 Remarks pain controlled, mod lochia, dru po, +void/flatus Objective Vitals/I&O Vital Signs Date Time Temp Pulse Resp B/P Pulse Ox O2 Delivery O2 Flow Rate FiO2 08/03/16 08:15 97.9 08/03/16 08:14 73 18 08/03/16 08:14 102/69 08/02/16 19:35 98.0 61 16 110/70 08/02/16 17:49 99.2 08/02/16 17:49 70 18 117/71 08/02/16 16:46 81 109/63 08/02/16 16:35 98.2 08/02/16 16:30 88 112/65 08/02/16 16:15 96 113/65 08/02/16 16:01 139 97/73 08/02/16 15:50 99.0 16 08/02/16 15:45 109 115/88 08/02/16 15:30 127 122/58 08/02/16 15:15 133 120/65 08/02/16 15:00 150 106/91 08/02/16 14:30 66 113/72 08/02/16 14:16 102 116/66 08/02/16 14:01 100 116/69 08/02/16 13:45 106 125/95 08/02/16 13:31 81 123/52 08/02/16 13:27 98.6 18 08/02/16 13:16 115 128/87 08/02/16 13:15 81 08/02/16 13:10 84 08/02/16 13:05 91 08/02/16 13:01 92 100/76 08/02/16 13:00 95 08/02/16 12:55 94 08/02/16 12:50 87 08/02/16 12:45 103 115/79 08/02/16 12:45 96 08/02/16 12:40 91 08/02/16 12:35 92 08/02/16 12:30 83 08/02/16 12:30 97 95/61 08/02/16 12:25 99 08/02/16 12:20 80 08/02/16 12:15 93 118/68 08/02/16 12:15 93 08/02/16 12:10 91 08/02/16 12:05 99 3/19/17 12:01 81 117/73 08/02/16 12:00 93 08/02/16 11:55 93 08/02/16 11:50 85 08/02/16 11:47 136/105 08/02/16 11:47 98 08/02/16 11:46 131/106 08/02/16 11:46 84 08/02/16 11:45 91 08/02/16 11:40 83 08/02/16 11:35 84 08/02/16 11:31 90 141/76 08/02/16 11:30 88 08/02/16 11:25 81 08/02/16 11:20 86 08/02/16 11:15 84 130/82 08/02/16 11:10 92 Objective Remarks GENERAL: Well-nourished, well-developed patient. CARDIOVASCULAR: Regular rate and rhythm without murmurs, gallops, or rubs. RESPIRATORY: Breath sounds equal bilaterally. No accessory muscle use. ABDOMEN/GI: Abdomen soft, non-tender. Fundus: Firm, non-tender at umbilicus. GENITOURINARY: Light to moderate bleeding. EXTREMITIES: No cyanosis or edema, non-tender, without signs of DVT. Medications and IVs Current Medications Medications (Trade) Dose Ordered Sig/Compa Route Start Time Stop Time Status Last Admin Lactated Ringer's 1,000 ml @ 125 mls/hr Q8H IV 08/02/16 02:52 08/02/16 10:21 Lactated Ringer's 1,000 ml @ 3,000 mls/hr Q20M PRN IV 08/02/16 02:52 Sodium Chloride 500 ml @ 1,000 mls/hr ONCE PRN IV 08/02/16 03:00 08/04/16 02:59 (NS 1000 ml Inj) 1,000 ml @ 100 mls/hr Q10H PRN IV 08/02/16 03:12 (fentaNYL INJ) 50 mcg Q1H PRN IV PUSH 08/02/16 03:00 08/02/16 03:42 (fentaNYL INJ) 100 mcg Q1H PRN IV PUSH 08/02/16 03:00 Mineral Oil 10 ml 10 ml UNSCH PRN TOPICAL 08/02/16 03:00 (fentaNYL 2MCG-BUPIV 0.125% INJ) 100 ml @ 0 mls/hr TITRATE EPIDURAL 08/02/16 05:00 08/02/16 16:12 Ondansetron HCl 4 mg 4 mg Q6H PRN IV 08/02/16 05:30 08/02/16 09:46 (Pitocin 30 Units-NS 500 ml Premix) 500 ml @ 0 mls/hr TITRATE IV 08/02/16 09:30 08/02/16 10:18 (NS Flush) 2 ml BID IV 08/02/16 21:00 (NS Flush) 2 ml UNSCH PRN IV 08/02/16 15:45 (Tylenol) 650 mg Q4H PRN PO 08/02/16 15:45 (Motrin) 600 mg Q6H PRN PO 08/02/16 15:45 08/03/16 08:29 (Percocet 5-325 Mg) 1 tab Q4H PRN PO 08/02/16 15:45 (Percocet 5-325 Mg) 2 tab Q4H PRN PO 08/02/16 15:45 (Americaine 20% Top Spr) 1 spray Q4H PRN TOPICAL 08/02/16 15:45 (Tucks Pads) 1 applic QID PRN TOPICAL 08/02/16 15:45 (Ximena-Colace) 2 tab Q12H PRN PO 08/02/16 15:45 (Ambien) 5 mg HS PRN PO 08/02/16 15:45 (Mag-Al Plus Susp Liq) 15 ml Q8H PRN PO 08/02/16 15:45 (Zofran Odt) 4 mg Q6H PRN PO 08/02/16 15:45 Assessment/Plan Problem List: (1) Spontaneous vaginal delivery Plan: routine pp care circ done Sophia Nelson MD Aug 03, 2016 11:07
[2016-08-04 08:00] VITALS: BP 119/79; PULSE 54; RESP 18; TEMP 98.4
[2016-08-04] MEDS ORDERED: IBUP-232 PO (08:53)
[2016-08-04] MEDS ORDERED: OXYC1TAB63 PO (08:53)
--- NOTE | 2016-08-04 08:54 | HHI.DCPOC ---
Discharge Care Plan Diagnosis: (1) Spontaneous vaginal delivery Your Health Problems Are: Vaginal delivery Report Symptoms to Your Doctor -Temperate above 100.5 degrees -Redness, of incision or excessive or foul smelling drainage -Unusual pain or calf pain -Increased vaginal bleeding -Painful or difficulty urinating -Feelings of extreme sadness or anxiety after 2 weeks Goals to Promote Your Health * To prevent worsening of your condition and complications * To maintain your health at the optimal level Directions to Meet Your Goals Take your medications as prescribed Follow your dietary instruction Follow activity as directed Ensure plenty of rest for recovery Drink fluids for hydration Keep your appointments as scheduled Take your immunizations and boosters as scheduled If your symptoms worsen call your PCP, if no PCP go to Urgent Care Center or Emergency Room Smoking is Dangerous to Your Health. Avoid second hand smoke Call the 24-hour crisis hotline for domestic abuse at Sophia Nelson MD Aug 04, 2016 08:54
== END 2016-08-04 11:51 | disposition home or self-care (01) | DRG 775 ==
LOC: HOBED 02:21 → H2EB 02:47 → H1EA 17:23
PROVIDERS: ADMIT Obstetrics & Gynecology; ATTEND Obstetrics & Gynecology
PROC: 10E0XZZ Delivery of Products of Conception, External Approach (ICD-10-PCS; principal; 2016-08-02)
PROC: 3E0S3CZ (ICD-10-PCS; 2016-08-02)
PROC: 00HU33Z Insertion of Infusion Device into Spinal Canal, Percutaneous Approach (ICD-10-PCS; 2016-08-02)
DX: O80 Encounter for full-term uncomplicated delivery (principal); Z37.0 Single live birth; Z3A.38 38 weeks gestation of pregnancy
CPT/HCPCS: 81001; 84112; 85025; 85461; 86850; 86900; 86901; 90384; 99285; J2405; J2590; J2790; J3010; J7120

== ENCOUNTER 2017-08-16 09:10 | Emergency (ER) | payer OTHER ==
[~2017-08-16] VITALS: Ht 154.9 cm; Wt 60.0 kg
[2017-08-16 09:20] VITALS: BP 121/74; PULSE 80; RESP 16; TEMP 97.6; O2SAT 100
[2017-08-16] MEDS ORDERED: [UNRECOGNIZED DRUG - REMARK] (09:43)
[2017-08-16] MEDS ORDERED: SODIUM CHLOR 0.9% 1000 ML INJ 1,000 ML IV SCH (09:50)
[2017-08-16] MEDS ORDERED: KETOROLAC TROMETHAMINE 30 MG/ML (IVP) VIAL IVP ONE (10:00)
[2017-08-16] MEDS ORDERED: SODIUM CHLORIDE 0.9% FLUSH 10 ML FLUSH IV FLUSH PRN (10:00)
[2017-08-16] MEDS ORDERED: ONDANSETRON HCL 4 MG/2 ML VIAL IVP ONE (10:00)
[2017-08-16 10:18] LABS: BASOPHIL % 0.5 % (0.0-2.0); EOSINOPHIL # 0.1 TH/MM3 (0-0.4); EOSINOPHIL % 1.2 % (0.0-4.0); HEMATOCRIT 40.4 % (35.0-46.0); HEMOGLOBIN 13.6 GM/DL (11.6-15.3); LYMPH % 43.5 % (9.0-44.0); LYMPHOCYTE # 2.7 TH/MM3 (1.0-4.8); MEAN CELL VOLUME 90.4 FL (80.0-100.0); MEAN CORPUSCULAR HEMOGLOBIN 30.3 PG (27.0-34.0); MEAN CORPUSCULAR HGB CONC 33.6 % (32.0-36.0); MEAN PLATELET VOLUME 7.3 FL (7.0-11.0); MONO % 5.8 % (0.0-8.0); MONOCYTE # 0.4 TH/MM3 (0-0.9); PLATELET COUNT 325 TH/MM3 (150-450); RED BLOOD COUNT 4.47 MIL/MM3 (4.00-5.30); RED CELL DISTRIBUTION WIDTH 12.9 % (11.6-17.2); WHITE BLOOD COUNT 6.1 TH/MM3 (4.0-11.0)
[2017-08-16 10:25] LABS: BILIRUBIN, URINE NEG (NEG); BLOOD, URINE NEG (NEG); GLUCOSE,URINE NEG (NEG); KETONE, URINE NEG (NEG); NITRITE,URINE NEG (NEG); PH, URINE 6.5 (5.0-8.5); SQUAMOUS EPITHELIAL CELL URINE 1 /hpf (0-5); URINE COLOR LIGHT-YELLOW (YELLW/STRAW); URINE LEUKOCYTE ESTERASE NEG (NEG)
--- NOTE | 2017-08-16 10:26 | PD ---
HPI Chief Complaint: Flank/Kidney Pain Time Seen by Provider: 09:42 Travel History International Travel<30 days: No Contact w/Intl Traveler<30days: No Traveled to known affect area: No History of Present Illness HPI Patient is a 22 year old female, with history of kidney stones in the past, who comes in complaining of right flank pain that started early this morning. She says the pain radiates down into her right groin. She says she has had ovarian cysts in the past as well and is unsure if the pain is related to her kidney or ovary. She says she is nauseous and feels warm, but has not had fever. She denies dysuria or blood in her urine. She has not taken anything for the pain. Severity is mild to moderate. PFSH Past Medical History Hx Anticoagulant Therapy: No Asthma: No Autoimmune Disease: No Blood Disorders: Yes (PORPHYRIA) Anxiety: Yes Depression: Yes (MILD) Heart Rhythm Problems: No Cancer: No Cardiovascular Problems: No High Cholesterol: No Chemotherapy: No Chest Pain: No Congestive Heart Failure: No COPD: No Cerebrovascular Accident: No Diabetes: No Diminished Hearing: No Endocrine: No Fibromyalgia: Yes Gastrointestinal Disorders: Yes (gerd gastroparesis) GERD: Yes Genitourinary: No Headaches: Yes Hepatitis: No Hiatal Hernia: No Immune Disorder: No Kidney Stones: No Musculoskeletal: No Neurologic: No Psychiatric: Yes Reproductive: No Respiratory: No Immunizations Current: Yes Migraines: Yes Radiation Therapy: No Renal Failure: No Seizures: No Sleep Apnea: No Thyroid Disease: No Ulcer: No PNEUMOCCOCAL Vaccine (Year): 2 ?: Unknown LMP: 07/29/17 : 1 Para: 1 Past Surgical History Abdominal Surgery: No AICD: No Appendectomy: Yes Arteriovenous Shunt: No Cardiac Surgery: No Cholecystectomy: Yes Ear Surgery: No Endocrine Surgery: No Eye Surgery: No Genitourinary Surgery: Yes Gynecologic Surgery: No Insulin Pump: No Joint Replacement: No Neurologic Surgery: No Oral Surgery: No Pacemaker: No Thoracic Surgery: No Other Surgery: Yes (APPY IN DEC AND GALL BLADDER JUN 2011, ADENOIDECTOMY) Social History Alcohol Use: No Tobacco Use: No Substance Use: No Allergies-Medications (Allergen,Severity, Reaction): Coded Allergies: acetaminophen (Unverified Allergy, Severe, Nausea/Vomiting, 08/16/17) hydrocodone (Unverified Allergy, Severe, Nausea/Vomiting, 08/16/17) prochlorperazine (Unverified Adverse Reaction, Intermediate, AGITATION, ANXIETY, 08/16/17) sumatriptan (Unverified Adverse Reaction, Intermediate, FEELS FAINT, ) metoclopramide (Unverified Adverse Reaction, Mild, 08/16/17) MAKES PT FEEL FUNNY Reported Meds & Prescriptions Reported Meds & Active Scripts Active Reported [ 3 Month Po Bc] Review of Systems Except as stated in HPI: all other systems reviewed are Neg General / Constitutional: No: Fever, Chills HENT: No: Headaches, Lightheadedness Cardiovascular: No: Chest Pain or Discomfort Respiratory: No: Shortness of Breath Gastrointestinal: Positive: Nausea, Abdominal Pain Genitourinary: Positive: Flank Pain Skin: No Rash, No Change in Pigmentation Neurologic: No: Weakness, Dizziness Physical Exam Narrative GENERAL: Awake and alert, in no acute distress. SKIN: Focused skin assessment warm/dry. No wounds or signs of infection. HEAD: Atraumatic. Normocephalic. EYES: Pupils equal and round. No scleral icterus. Extraocular movements intact. ENT: Mucous membranes pink and moist. NECK: Trachea midline. No JVD. CARDIOVASCULAR: Regular rate and rhythm. No murmur appreciated. RESPIRATORY: No accessory muscle use. Clear to auscultation. Breath sounds equal bilaterally. GASTROINTESTINAL: Abdomen soft, non-tender, nondistended. Right CVA tenderness. MUSCULOSKELETAL: No obvious deformities. No clubbing. No cyanosis. No edema. NEUROLOGICAL: Awake and alert. No obvious cranial nerve deficits. Motor grossly within normal limits. Normal speech. PSYCHIATRIC: Appropriate mood and affect; insight and judgment normal. Data Data Last Documented VS Vital Signs Date Time Temp Pulse Resp B/P (MAP) Pulse Ox O2 Delivery O2 Flow Rate FiO2 08/16/17 09:20 97.6 80 16 121/74 (90) 100 Orders Orders Complete Blood Count With Diff (08/16/17 09:50) Comprehensive Metabolic Panel (08/16/17 09:50) Urinalysis - C+S If Indicated (08/16/17 09:50) Ct Abd/Pel W/O Iv Contrast (08/16/17 09:50) Iv Access Insert/Monitor (08/16/17 09:50) Ecg Monitoring (08/16/17 09:50) Oximetry (08/16/17 09:50) Ondansetron Inj (Zofran Inj) (08/16/17 10:00) Sodium Chlor 0.9% 1000 Ml Inj (Ns 1000 M (08/16/17 09:50) Sodium Chloride 0.9% Flush (Ns Flush) (08/16/17 10:00) Ketorolac Inj (Toradol Inj) (08/16/17 10:00) Ed Urine Pregnancytest Poc (08/16/17 09:50) Morphine Inj (Morphine Inj) (08/16/17 10:45) Diazepam (Valium) (08/16/17 12:00) Ed Discharge Order (08/16/17 13:29) Labs Laboratory Tests Test 08/16/17 10:05 White Blood Count 6.1 TH/MM3 Red Blood Count 4.47 MIL/MM3 Hemoglobin 13.6 GM/DL Hematocrit 40.4 % Mean Corpuscular Volume 90.4 FL Mean Corpuscular Hemoglobin 30.3 PG Mean Corpuscular Hemoglobin Concent 33.6 % Red Cell Distribution Width 12.9 % Platelet Count 325 TH/MM3 Mean Platelet Volume 7.3 FL Neutrophils (%) (Auto) 49.0 % Lymphocytes (%) (Auto) 43.5 % Monocytes (%) (Auto) 5.8 % Eosinophils (%) (Auto) 1.2 % Basophils (%) (Auto) 0.5 % Neutrophils # (Auto) 3.0 TH/MM3 Lymphocytes # (Auto) 2.7 TH/MM3 Monocytes # (Auto) 0.4 TH/MM3 Eosinophils # (Auto) 0.1 TH/MM3 Basophils # (Auto) 0.0 TH/MM3 CBC Comment DIFF FINAL Differential Comment Urine Color LIGHT-YELLOW Urine Turbidity CLEAR Urine pH 6.5 Urine Specific [place] 1.006 Urine Protein NEG mg/dL Urine Glucose (UA) NEG mg/dL Urine Ketones NEG mg/dL Urine Occult Blood NEG Urine Nitrite NEG Urine Bilirubin NEG Urine Urobilinogen LESS THAN 2.0 MG/DL Urine Leukocyte Esterase NEG Urine Squamous Epithelial Cells 1 /hpf Microscopic Urinalysis Comment CULT NOT INDICATED Blood Urea Nitrogen 11 MG/DL Creatinine 0.67 MG/DL Random Glucose 84 MG/DL Total Protein 7.9 GM/DL Albumin 4.2 GM/DL Calcium Level 9.2 MG/DL Alkaline Phosphatase 64 U/L Aspartate Amino Transf (AST/SGOT) 17 U/L Alanine Aminotransferase (ALT/SGPT) 17 U/L Total Bilirubin 0.4 MG/DL Sodium Level 141 MEQ/L Potassium Level 4.0 MEQ/L Chloride Level 107 MEQ/L Carbon Dioxide Level 29.3 MEQ/L Anion Gap 5 MEQ/L Estimat Glomerular Filtration Rate 110 ML/MIN MDM Medical Decision Making Medical Screen Exam Complete: Yes Emergency Medical Condition: Yes Medical Record Reviewed: Yes Differential Diagnosis UTI versus renal stone versus ovarian cyst versus mittelschmerz syndrome versus muscle strain Narrative Course Patient is a 22-year-old female who comes in complaining of right flank pain. Exam shows right CVA tenderness. IV established, labs sent. Labs show no acute abnormalities. Urinalysis shows no acute abnormalities. CT abdomen and pelvis performed shows no acute abnormalities. Last 24 hours Impressions Abdomen/Pelvis CT 08/16/17 0950 Signed Impressions: Service Date/Time: Wednesday, August 16, 2017 10:33 - CONCLUSION: 1. No definite abnormality to explain the patient's abdominal pain identified. 2. Specifically , no renal stones are evident. Sukumar Weller MD Patient given IV fluids, Toradol, morphine. Given Valium, which finally relieved her pain. She will be discharged with a prescription for Valium. Advised follow-up with a primary doctor. Advised return to the ED as needed for any worsening symptoms. Diagnosis Primary Impression: Flank pain Patient Instructions: Back Pain (ED), General Instructions Additional Instructions: Take ibuprofen as needed for pain. Take Valium for release of muscle spasms. Be careful as it may make you drowsy. Drink plenty of fluids. Follow-up with a primary doctor. Return to the ED as needed for any worsening symptoms. Scripts Diazepam (Valium) 5 Mg Tab 5 MG PO TID Y for MUSCLE SPASM, #12 TAB 0 Refills Prov: Gladis Brown MD 08/16/17 Disposition: 01 DISCHARGE HOME Condition: Stable Gladis Brown MD Aug 16, 2017 10:26
[2017-08-16 10:33] LABS: ALBUMIN 4.2 GM/DL (3.4-5.0); ALT (GPT) 17 U/L (10-53); AST (GOT) 17 U/L (15-37); BICARBONATE 29.3 MEQ/L (21.0-32.0); BLOOD UREA NITROGEN 11 MG/DL (7-18); CALCIUM 9.2 MG/DL (8.5-10.1); CHLORIDE 107 MEQ/L (98-107); CREATININE 0.67 MG/DL (0.50-1.00); GLOMERULAR FILTRATION RATE 110 ML/MIN (>89); GLUCOSE,RANDOM 84 MG/DL (74-106); SODIUM (NA) 141 MEQ/L (136-145)
[2017-08-16 10:35] LABS: ALKALINE PHOSPHATASE 64 U/L (45-117); TOTAL BILIRUBIN ADULT 0.4 MG/DL (0.2-1.0); TOTAL PROTEIN 7.9 GM/DL (6.4-8.2)
[2017-08-16] MEDS ORDERED: MORPHINE SULFATE 2 MG/ML SYRINGE IV PUSH ONE (10:45)
--- NOTE | 2017-08-16 11:00 | RADRPT ---
EXAM DATE/TIME: 08/16/2017 10:33 [facility] COMPARISON: CT ABDOMEN & PELVIS W/O CONTRAST, May 13, 2015, 8:22. INDICATIONS : Right flank pain ORAL CONTRAST: No oral contrast ingested. RADIATION DOSE: 4.61 CTDIvol (mGy) MEDICAL HISTORY : Gastroesophageal reflux disease. SURGICAL HISTORY : Appendectomy. Cholecystectomy. ENCOUNTER: Initial ACUITY: 1 day PAIN SCALE: 6/10 LOCATION: Right flank TECHNIQUE: Volumetric scanning of the abdomen and pelvis was performed. Using automated exposure control and ad justment of the mA and/or kV according to patient size, radiation dose was kept as low as reasonably achievable to obtain optimal diagnostic quality images. DICOM format image data is available electro nically for review and comparison. FINDINGS: The limited portion of the lung base visualized is clear. The appearance of the liver, spleen, pancreas and adrenal glands is within normal limits. Right kidney/ureter: The right kidney is normal in size. There is no hydronephrosis. The right ureter can be followed thro ughout most of its course. It is normal in caliber. No stones are seen within the right ureter. Left kidney/ureter: The left kidney is normal in size. No stones are seen. The left ureter is followed throughout most of its course and is unremarkable in appearance. There is no free intraperitoneal air. No free intraperitoneal fluid is identified. There is no retrop eritoneal lymphadenopathy. The aorta is normal in caliber. There is no free fluid within the pelvis. There are phleboliths seen bilaterally. The reproductive or bhargavi are intact. The visualized bony structures are intact. CONCLUSION: 1. No definite abnormality to explain the patient's abdominal pain identified. 2. Specifically, no renal stones are evident. Sukumar Weller MD on August 16, 2017 at 10:54 Board Certified Radiologist. This report was verified electronically.
[2017-08-16] MEDS ORDERED: DIAZEPAM 10 MG TAB PO ONE (12:00)
[2017-08-16] MEDS ORDERED: DIAZ5 PO (13:34)
[2017-08-16 13:55] VITALS: BP 112/73
== END 2017-08-16 14:03 | disposition home or self-care (01) ==
LOC: NEPD 09:10
DX: R10.9 Unspecified abdominal pain (principal); R11.0 Nausea; Z87.442 Personal history of urinary calculi
CPT/HCPCS: 74176; 80053; 81001; 84703; 85025; 96361; 96374; 96375; 99284; J1885; J2270; J2405; J7030